=== PATIENT | male | born 1945 | race Caucasian/White ===

== ENCOUNTER 2020-03-21 11:40 | Emergency (ER) | payer MEDICARE, BC, SELFPAY ==
--- NOTE | ~2020-03-21 | XR_ITS ---
EXAMINATION:XR cervical spine 4-5V DATE: 03/21/2020 12:28 INDICATION: Neck pain TECHNIQUE: AP, lateral, lateral swimmers and odontoid views of the cervical spine are provided. COMPARISON: 10/14/2006 FINDINGS: Alignment is normal. The odontoid is intact. No fracture is identified. The vertebral body heights are normal. There are 2 mm of chronic anterolisthesis of C4 on C5. There is mild loss of inte rvertebral disc space height throughout the cervical spine. Moderate to severe multilevel facet and u ncovertebral joint osteoarthritis is noted. Prevertebral soft tissues are normal. IMPRESSION: 1. Moderate cervical spondylosis without acute findings or significant interval change. Reviewed, dictated and finalized at location A. OMS IMPORT SPECIALIST
[2020-03-21 11:45] VITALS: BP 166/84; PULSE 78; RESP 17; TEMP 36.6; O2SAT 99
[2020-03-21 12:53] VITALS: BP 152/98; PULSE 66; RESP 18; O2SAT 99
--- NOTE | 2020-03-21 13:15 | ED.GENADULT ---
HPI - General Adult General Chief complaint: Unspecified Stated complaint: neck pain Time Seen by Provider: 03/21/20 11:42 Source: patient Mode of arrival: ambulatory Limitations: no limitations History of Present Illness HPI narrative: 74-year-old with a history of hypertension, chronic migraines, DJD here with complaints of neck pain for past few days. Patient states that he takes Ultram for his chronic migraines given by Dr. 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 He denies any weakness in his upper extremities. He states that Ultram has not helping with the pain. Onset (ago): day(s) (3) Location: neck Radiation: neck Severity: moderate Severity scale (1-10): 7 Quality: aching Pain Consistency: constant Relieving factors: movement Exacerbating factors: none Associated symptoms: denies other symptoms Related Data Home Medications Medication Instructions Recorded Confirmed aspirin 81 mg tablet,delayed 81 mg PO DAILY 06/08/19 release atorvastatin 40 mg tablet 40 mg PO DAILY 06/08/19 carvedilol 6.25 mg tablet 6.25 mg PO Q12H 06/08/19 nitroglycerin 0.4 mg sublingual 0.4 mg SUBLINGUAL Q5M PRN 06/08/19 tablet tramadol 50 mg tablet 100 mg PO Q6H PRN tablet 06/08/19 vitamin B complex 1 tablet PO DAILY 09/12/19 Allergies Allergy/AdvReac Type Severity Reaction Status Date / Time No Known Allergies Allergy Verified 03/21/20 11:47 Review of Systems Review of Systems: All systems reviewed & are unremarkable except as noted in HPI and below Constitutional: Constitutional: Reports no additional constitutional complaints Eyes: Eyes: Reports no additional eye complaints ENT: Reports system reviewed and no additional complaints, except as documented Cardiovascular: Cardiovascular: Reports no additional cardiovascular complaints Respiratory: Respiratory: Reports no additional respiratory complaints Musculoskeletal: Musculoskeletal: Reports as per HPI [facility] Past Medical History Medical History Dyslipidemia Hyperparathyroidism Hypogonadism Left carpal tunnel syndrome Lumbar disc disease Migraine Normal colonoscopy RAQUEL (obstructive sleep apnea) Pre-diabetes Vitamin B12 deficiency Surgical History Surgical History History of coronary artery stent placement 2014 History of left inguinal hernia repair 2018 History of parathyroid surgery Family History Family History Other Diabetes mellitus Family history of cardiovascular disease Family history of lung cancer Hypertension Social History Social History Smoking status: Former smoker Smoking end date: 05/17/98 Alcohol intake: current Substance use: never Substance use type: does not use and marijuana Other substance usage details: occasionally Gender identity (if verbalized by the patient): Male Exam Narrative: Exam Narrative: GENERAL: Well-appearing, well-nourished, and in no acute distress. HEAD: Normocephalic, atraumatic. EYES: PERRLA and EOMI. ENT: Nares normal NECK: Supple.pain in the right side of the neck CHEST: Clear to auscultation. No respiratory distress. HEART: Regular rate and rhythm. No murmur heard. Normal peripheral pulses. EXTREMITIES: Normal range of motion. No edema. SKIN: Warm, dry, no rash. NEURO: No focal deficits. Alert and oriented x3. PSYCH: Normal mood and affect. Course Course Emergency Course: Inform patient about his x-ray findings. Advised him to take Ultram for pain as needed, will start him on steroids and and Flexeril for muscle relaxation. Vital Signs Vital signs: Vital Signs Temperature 36.6 C 03/21/20 11:45 Pulse Rate 78
[2020-03-21 13:40] VITALS: BP 158/62; PULSE 78; RESP 18; O2SAT 99
== END 2020-03-21 13:43 | disposition home or self-care (01) ==
PROVIDERS: Emergency Provider Family Medicine; PCP Family Medicine
DX: M47.812 Spondylosis without myelopathy or radiculopathy, cervical region (principal); Z79.82 Long term (current) use of aspirin; E78.5 Hyperlipidemia, unspecified; E21.3 Hyperparathyroidism, unspecified; G47.33 Obstructive sleep apnea (adult) (pediatric); R73.03 Prediabetes; E53.8 Deficiency of other specified B group vitamins; Z87.891 Personal history of nicotine dependence; Z95.5 Presence of coronary angioplasty implant and graft
CPT/HCPCS: 72050; 99283

== ENCOUNTER 2022-01-01 13:53 | Outpatient (RCR) | payer MEDICARE, BC, SELFPAY | END 2022-01-02 15:23 | disposition home or self-care (01) | LOC: ANHDMC 13:53 | PROVIDERS: PCP Family Medicine; Visit Provider Nurse Practitioner | DX: E11.65 Type 2 diabetes mellitus with hyperglycemia (principal); Z71.89 Other specified counseling | CPT/HCPCS: G0109 ==

== ENCOUNTER 2022-02-02 11:10 | Outpatient (CLI) | payer MEDICARE, BC, SELFPAY ==
[2022-02-02 20:58] LABS: Alanine Aminotransferase 17 U/L (6-50); Albumin Level 4.5 g/dL (3.5-5.1); Alkaline Phosphatase 61 U/L (38-126); Anion Gap 12 mmol/L (8-16); Aspartate Amino Transferase 56 U/L (17-59); Bilirubin,Total 0.5 mg/dL (0.2-1.3); Blood Urea Nitrogen 18 mg/dL (9-20); Carbon Dioxide 31 mmol/L (22-30); Chloride 95 mmol/L (98-107); Estimated Glomerular Filt Rate > 60; Glucose 152 mg/dL (65-110); Potassium 4.5 mmol/L (3.4-5.0); Sodium 138 mmol/L (137-145)
[2022-02-02 20:59] LABS: Hemoglobin A1C 7.8 % (<5.7)
== END 2022-02-02 11:11 | disposition home or self-care (01) ==
LOC: ANHGOSHLAB 11:14
PROVIDERS: PCP Family Medicine; Visit Provider Family Medicine
DX: E78.5 Hyperlipidemia, unspecified (principal); I10 Essential (primary) hypertension; E11.9 Type 2 diabetes mellitus without complications
CPT/HCPCS: 36415; 80053; 83036

== ENCOUNTER 2022-05-01 08:45 | Outpatient (RCR) | payer MEDICARE, BC, SELFPAY ==
--- NOTE | 2022-02-19 09:25 | PTOPEVAL1 ---
Assessment and note entered by Mickey Robbins, PT, DPT Evaluation Information Assessment Status Evaluation Diagnosis Leg pain Onset 2 months Subjective Information Pt states prior he was having a lot of leg pain. He states he has been walking a mile a day for the last 2 weeks or so. He states he has radiating pain into his left leg, this improves with prolonged walking. He reports he also has chronic migraine. He states his leg pain was a 8/10, and now it has decreased to an average 4/10. Reported Pain Level Pain Score 0: Self Report Assessment PT Clinical Summary James Alvarado presents to therapy today for his initial evaluation with a diagnosis thoracic, lumbar, and sacral disc disorder with radiculopathy. Today he demonstrates excellent strength and ROM of his LEs bilaterally. He has significant limitations in her cervical, thoracic, and lumbar mobility through active motion as well as with palpation. He has a flatted thoracic and lumbar spine with a forward head and rounded posture. Skilled physical therapy services are indicated to improve spinal mobility, to limit radiating symptoms, and to promote improved posture and body mechanics. Plan of Care Interventions Electrical Stimulation,Hot Pack/Cold Pack,Manual Therapy,Neuro Re-education,Patient/Caregiver Educati,Therapeutic Activities,Therapeutic Exercise PT Services Indicated Yes Treatment Frequency and 1x/wk for 6 wks Duration These treatments will address the objective and functional deficits as defined above. The patient will be advanced safely and appropriately in order for the patient to progress towards his/her prior level of function. Additional exercises will be introduced and as well as a comprehensive home exercise program upon discharge, if needed, ?to ensure carryover of functional gains achieved in the clinic. This treatment plan has been reviewed and agreement upon by the patient.
--- NOTE | 2022-03-17 11:15 | PCPTNOTE ---
Patient called to cancel day off appointment due to not being able to make it.
--- NOTE | 2022-04-06 15:07 | PCPTNOTE ---
Patient did not show up for scheduled appointment this date. Called patient and attempted to leave a voicemail but his mailbox was full. Will attempt at a later date.
--- NOTE | 2022-04-10 14:17 | PCPTNOTE ---
Called again to follow up with patient about cancelling his appointment earlier this week. Attempted to leave voicemail but the mailbox was full.
--- NOTE | 2022-04-16 16:42 | PTOPPROG ---
Assessment and note entered by Mickey Robbins, PT, DPT Evaluation Information Assessment Status Progress Diagnosis Leg and neck pain Onset chronic Subjective Information Pt states he has been doing okay, he has been focusing more on his neck exercises. He states his legs are feeling better and he has been able to increase his walking up to his usual 4 miles. He states he has been having leg and neck stiffness and it is still progressing. Assessment PT Clinical Summary presents to therapy today for his progress report following 5 visits of therapy to treat his leg and neck pain. His LE strength has improved and he does not report any functional limitations at this time. He continues to have decreased cervical active and passive ROM as well as continues to have a very forward head with rounded and stooped posture. Continuation of skilled physical therapy services are indicated to progress cervical ROM and intervertebral joint mobility, to manage neck pain and headaches, and to return to baseline function. Plan of Care Interventions Electrical Stimulation,Hot Pack/Cold Pack,Manual Therapy,Neuro Re-education,Patient/Caregiver Educati,Therapeutic Activities,Therapeutic Exercise PT Services Indicated Yes Treatment Frequency and 1x/wk for 6 wks Duration These treatments will address the objective and functional deficits as defined above. The patient will be advanced safely and appropriately in order for the patient to progress towards his/her prior level of function. Additional exercises will be introduced and as well as a comprehensive home exercise program upon discharge, if needed, ?to ensure carryover of functional gains achieved in the clinic. This treatment plan has been reviewed and agreement upon by the patient.
--- NOTE | 2022-04-22 10:50 | PCPTNOTE ---
Patient called & cancelled scheduled appointment this date due to being sick.
--- NOTE | 2022-05-05 07:59 | PCPTNOTE ---
Patient called & cancelled scheduled appointment this date due to having a procedure done.
--- NOTE | 2022-05-13 10:12 | PCPTNOTE ---
Patient no showed this appointment. When called he states he forgot.
--- NOTE | 2022-05-14 14:48 | PCPTNOTE ---
Addendum entered by Mickey Robbins, PT, DPT 05/14/22 14:49: This treatment is being continued on visit number [id number]. Original Note: This treatment is being continued on visit number [id number]. Please see documentation on both accounts to view progress. Completed interventions, outcomes, and problems have been marked as Inactive to facilitate the copying of the Care plan routine for recurring accounts.
== END 2022-05-14 14:32 | disposition home or self-care (01) ==
LOC: ANHGOSHPT 08:45
PROVIDERS: PCP Family Medicine; Visit Provider Family Medicine
DX: M51.9 Unspecified thoracic, thoracolumbar and lumbosacral intervertebral disc disorder (principal); M54.16 Radiculopathy, lumbar region
CPT/HCPCS: 97110; 97112; 97140; 97161; 97530; 99199

== ENCOUNTER 2022-05-06 01:12 | Day surgery (SDC) | payer MEDICARE, BC, SELFPAY ==
[2022-04-23 13:16] VITALS: BMI 31.2
--- NOTE | 2022-05-05 14:14 | PM.HPGS ---
History of Present Illness History of Present Illness Consent: Risks, benefits, and alternatives have been discussed and questions answered. Patient agrees to proceed with procedure. Chief complaint: neoplasm screening Narrative: James Galeas is a 77 year old male referred for colon cancer screening. Review of Systems Review of Systems: All systems reviewed & are unremarkable except as noted in HPI and below PMFSH Past Medical History Medical History Dyslipidemia Hyperparathyroidism Hypogonadism Left carpal tunnel syndrome Lumbar disc disease Migraine Normal colonoscopy RAQUEL (obstructive sleep apnea) Vitamin B12 deficiency Surgical History Surgical History History of coronary artery stent placement 2014 History of left inguinal hernia repair 2018 History of parathyroid surgery Family History Family History Other Diabetes mellitus Family history of cardiovascular disease Family history of lung cancer Hypertension Social History Social History Years smoked: 20 Smoking status: Former smoker Tobacco type: cigarettes Smoking end date: 05/17/98 Alcohol intake: former Substance use: current Substance use type: marijuana Other substance usage details: occasionally Last use: 2X monthly Living arrangements: alone Gender identity (if verbalized by the patient): Male Spiritual care concerns: No Meds Home Medications and Allergies Home Medications Medication Instructions Recorded Confirmed Type carvedilol 6.25 mg tablet 6.25 mg PO Q12H 06/08/19 05/06/22 History nitroglycerin 0.4 mg sublingual 0.4 mg sublingual Q5M PRN Chest 06/08/19 04/23/22 History tablet (Nitrostat) Pain atorvastatin 40 mg tablet 40 mg PO QHS 07/31/21 05/06/22 History blood sugar diagnostic (YoicsTouch #25 ea 08/06/21 02/02/22 Rx Ultra Test strips) blood-glucose meter (YoicsTouch #1 ea 08/06/21 02/02/22 Rx Ultra2 Meter kit) lisinopril 20 mg tablet 20 mg PO DAILY #90 tabs 09/08/21 05/06/22 Rx lancets (OneTouch UltraSoft #100 ea 11/05/21 02/02/22 Rx Lancets) blood sugar diagnostic (OneTouch #200 ea 01/05/22 02/02/22 Rx Verio test strips) metformin 500 mg tablet 1,000 mg PO BID #360 tabs 02/02/22 05/06/22 Rx glipizide 5 mg tablet, extended 5 mg PO DAILY #90 tabs 02/03/22 05/06/22 Rx release 24 hr aspirin 325 mg tablet 325 mg PO DAILY 04/23/22 05/06/22 History tramadol 50 mg tablet 50 mg PO Q8H PRN Headache 04/23/22 04/23/22 History sumatriptan succinate 50 mg tablet See Rx Instructions .Route 04/27/22 05/06/22 Rx .COMPLEX #30 tabs topiramate 25 mg tablet (Topamax) 25 mg PO BID #60 tabs 04/28/22 Rx Allergies Allergy/AdvReac Type Severity Reaction Status Date / Time No Known Allergies Allergy Verified 05/06/22 07:27 Exam Resp: Auscultation: clear to auscultation bilaterally Cardio: Rate: regular rate Rhythm: regular rhythm GI: GI Palp: Yes Soft to palpation and No Tenderness to palpation present (GI) Assessment and Plan Assessment and plan (1) Colon cancer screening: Code(s): Z12.11 - Encounter for screening for malignant neoplasm of colon Status: Acute Assessment and Plan: Colonoscopy with possible biopsy or polypectomy or cautery or injection of substances.
[2022-05-06 07:31] VITALS: BP 139/81; PULSE 66; RESP 18; TEMP 35.8; O2SAT 100; BMI 31.1
[2022-05-06] MEDS: LACTATED RINGERS 1,000 ML 150 ML IV CONT (07:34)
[2022-05-06 07:46] LABS: Glucose Point of Care 139 mg/dl (65-105)
--- NOTE | 2022-05-06 07:58 | WPDANESEPPF ---
Anes - Initial Pre Proc Eval Procedure: Operation Date: 05/06/22 08:30 Proposed Procedures p Screening Colonoscopy - Jimmy Stokes MD Date/Time: 05/06/22 07:58 Surgeon: Jimmy Stokes MD Pre Op Diagnosis: neoplasm screening Patient Data Age: 77 Gender: M Height: 1.83 m Weight: 104.4 kg Last Vital Signs Temp 35.8 C L 05/06/22 07:31 Pulse 66 05/06/22 07:31 Resp 18 05/06/22 07:31 BP 139/81 05/06/22 07:31 Pulse Ox 100 05/06/22 07:31 O2 Del Method Room Air 05/06/22 07:31 Allergies Allergy/AdvReac Type Severity Reaction Status Date / Time No Known Allergies Allergy Verified 05/06/22 07:27 Home Medications Medication Instructions Recorded Confirmed Type carvedilol 6.25 mg tablet 6.25 mg PO Q12H 06/08/19 05/06/22 History nitroglycerin 0.4 mg sublingual 0.4 mg sublingual Q5M PRN Chest 06/08/19 04/23/22 History tablet (Nitrostat) Pain atorvastatin 40 mg tablet 40 mg PO QHS 07/31/21 05/06/22 History blood sugar diagnostic (OneTouch #25 ea 08/06/21 02/02/22 Rx Ultra Test strips) blood-glucose meter (OneTouch #1 ea 08/06/21 02/02/22 Rx Ultra2 Meter kit) lisinopril 20 mg tablet 20 mg PO DAILY #90 tabs 09/08/21 05/06/22 Rx lancets (OneTouch UltraSoft #100 ea 11/05/21 02/02/22 Rx Lancets) blood sugar diagnostic (OneTouch #200 ea 01/05/22 02/02/22 Rx Verio test strips) metformin 500 mg tablet 1,000 mg PO BID #360 tabs 02/02/22 05/06/22 Rx glipizide 5 mg tablet, extended 5 mg PO DAILY #90 tabs 02/03/22 05/06/22 Rx release 24 hr aspirin 325 mg tablet 325 mg PO DAILY 04/23/22 05/06/22 History tramadol 50 mg tablet 50 mg PO Q8H PRN Headache 04/23/22 04/23/22 History sumatriptan succinate 50 mg tablet See Rx Instructions .Route 04/27/22 05/06/22 Rx .COMPLEX #30 tabs topiramate 25 mg tablet (Topamax) 25 mg PO BID #60 tabs 04/28/22 Rx Laboratory Tests 05/06/22 07:43 POC Capillary Glucose 139 mg/dl H mg/dl (65-105) Patient hx anesthesia problems: none Family hx anesthesia problems: none Results Review: All pre-operative results and documents have been reviewed as part of the pre-operative evaluation. [facility] Past Medical History Medical History Dyslipidemia Hyperparathyroidism Hypogonadism Left carpal tunnel syndrome Lumbar disc disease Migraine Normal colonoscopy RAQUEL (obstructive sleep apnea) Vitamin B12 deficiency Surgical History Surgical History History of coronary artery stent placement 2013 History of left inguinal hernia repair 2018 History of parathyroid surgery Family History Family History Other Diabetes mellitus Family history of cardiovascular disease Family history of lung cancer Hypertension Social History Social History Years smoked: 20 Smoking status: Former smoker Tobacco type: cigarettes Smoking end date: 05/17/98 Alcohol intake: former Substance use: current Substance use type: marijuana Other substance usage details: occasionally Last use: 2X monthly Living arrangements: alone Gender identity (if verbalized by the patient): Male Spiritual care concerns: No Anes - Eval Final PreProcedure Day of Procedure 05/06/22 07:58 Patient weight: obese Heart: regular rate and rhythm Lungs: clear to auscultation Airway: Mallampati scale class II Neurological: alert and oriented Last oral intake: >/= 8 hours ASA classification: III Emergent: no Anesthetic plan: proceed Anesthesia type and monitoring: general GIVS and standard monitoring Results Review: All pre-operative results and documents have been reviewed as part of the pre-operative evaluation. Informed Consent: The patient's anesthetic plan and its attendant risks and benefits were discussed w
[2022-05-06 08:43] VITALS: BP 131/68; BP 137/81; PULSE 69; PULSE 78; RESP 20; RESP 21; O2SAT 100
[2022-05-06 08:53] VITALS: BP 138/78; PULSE 69; RESP 20; O2SAT 100
--- NOTE | 2022-05-06 09:43 | SUR.PHASEII ---
Patient was awaiting ride home for 15-20 minutes
== END 2022-05-06 09:30 | disposition home or self-care (01) ==
PROVIDERS: PCP Family Medicine; Visit Provider Internal Medicine Gastroenterology
PROC: 0DJD8ZZ Inspection of Lower Intestinal Tract, Via Natural or Artificial Opening Endoscopic (ICD-10-PCS; CPT 45378; principal; 2022-05-06 08:30)
DX: Z12.11 Encounter for screening for malignant neoplasm of colon (principal); K57.30 Diverticulosis of large intestine without perforation or abscess without bleeding; D12.0 Benign neoplasm of cecum; E78.5 Hyperlipidemia, unspecified; G47.33 Obstructive sleep apnea (adult) (pediatric); Z95.5 Presence of coronary angioplasty implant and graft; Z87.891 Personal history of nicotine dependence; F12.90 Cannabis use, unspecified, uncomplicated; E66.9 Obesity, unspecified; Z68.31 Body mass index [BMI] 31.0-31.9, adult; Z79.84 Long term (current) use of oral hypoglycemic drugs; Z79.82 Long term (current) use of aspirin
CPT/HCPCS: 45385; 82948; 88305; J2704; J7120

== ENCOUNTER → 2022-06-16 14:26 | Outpatient (CLI) | payer MEDICARE, BC, SELFPAY ==
--- NOTE | ~2022-06-16 | XR_ITS ---
EXAMINATION: XR lumbar spine min 4V DATE: 06/16/2022 14:43 INDICATION: Left leg pain TECHNIQUE: Anteroposterior, lateral, and bilateral oblique views of the lumbar spine, and cone-down l ateral view of the lumbosacral junction were obtained. COMPARISON: 10/26/2008 FINDINGS: There are 5 mm of anterolisthesis of L3 on L4 and L4 on L5. The vertebral body heights are normal. There is moderate loss of intervertebral disc space height at L1-2 and L5-S1. There is no fra cture. There is severe facet joint osteoarthritis of the mid and lower lumbar spine. Small degenerati ve osteophytes project from the anterior endplates of multiple vertebral bodies. Calcified atheroscle rosis is noted. IMPRESSION: 1. Mild to moderate lumbar spondylosis without acute findings or significant interval change. Reviewed, dictated and finalized at location B. DESIGN ENGINEER IMPRESSION: 1. Mild to moderate lumbar spondylosis without acute findings or significant in terval change.
== END ==
PROVIDERS: PCP Family Medicine; Visit Provider Nurse Practitioner
DX: M79.605 Pain in left leg (principal); M43.06 Spondylolysis, lumbar region
CPT/HCPCS: 72110

== ENCOUNTER 2022-06-22 11:00 | Outpatient (RCR) | payer MEDICARE, BC, SELFPAY ==
--- NOTE | 2022-05-14 14:48 | PCPTNOTE ---
The treatment documented on this account is a continuation of the treatment documented on visit number [id number]. Please see documentation on both accounts to view progress. The Plan of Care has been transitioned and updated within the new V#. I have addressed and agree with the discipline specific Problems, Interventions, and Goals for the current certification period. Completed interventions, outcomes, and problems have been marked as Inactive to facilitate the copying of the Care plan routine for recurring accounts.
--- NOTE | 2022-05-19 08:05 | PCPTNOTE ---
Patient canceled appointment this date due to conflicting dentist appointment.
--- NOTE | 2022-05-27 13:49 | OTOPEVAL1 ---
Assessment and note entered by Mira Archibald OTR/Demarco Evaluation Information Assessment Status Evaluation Diagnosis R UE elbow pain Subjective Information Patient presents to outpatient OT with complaint of R UE elbow pain for ~1 month. Patient reports injury was caused from picking up a 50lbs block of loyda at his [employer] and felt a pop at the antecubital aspect of elbow and now has palpable tenderness and pain with lifting heavier objects with R UE. Reported Pain Level Pain Score 2: Self Report Assessment OT Clinical Summary James Alvarado is a 77 year old male who presents to outpatient OT for pain in R elbow which began ~1 month prior. Patient reports pain over the distal end of biceps tendon with attempting to perform elbow flexion with any type of weight, carrying objects, and some gripping tasks. Patient demonstrated increased pain resistive elbow flexion and forearm supination. 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 Patient would benefit from skilled OT for HEP instruction, modalities, manual theraputty to optimize healing and functional use of R UE for daily tasks and activities. Plan of Care Interventions Therapeutic Exercise,Manual Therapy,Therapeutic Activities,Hot Pack/Cold Pack,Ultrasound,Paraffin OT Services Indicated Yes Treatment Frequency and 1x/week, 4 weeks Duration These treatments will address the objective and functional deficits as defined above. The patient will be advanced safely and appropriately in order for the patient to progress towards his/her prior level of function. Additional exercises will be introduced and as well as a comprehensive home exercise program upon discharge, if needed, ?to ensure carryover of functional gains achieved in the clinic. This treatment plan has been reviewed and agreement upon by the patient.
--- NOTE | 2022-05-28 12:01 | PTOPDC ---
Assessment and note entered by Mickey Robbins, PT, DPT Evaluation Information Assessment Status Discharge Diagnosis decreased spinal mobility Subjective Information Pt states overall he is doing good. He states his L leg is not bothering him as much. He states the exercises make him feel good, and he plans to prioritize these even more. He states he is progressing well he just needs more time to keep progressing. He states he can feel the difference when he does his exercises compared to when he does not. Pt reports 10% improvement in his overall symptoms, he states this would be more if he completed his exercises more. Pt reports no pain at rest and a decreased from 8/10 to 5/10 for his worst pain rating. Reported Pain Level Pain Score 0: Self Report Assessment PT Clinical Summary presents to therapy today for his progress report following 7 visits of skilled therapy standing since his evaluation on 02/19/22. Today he demonstrates minimal functional improvements since his evaluation. He continues to demonstrates decreased cervical ROM in all directions. He continue to report radicular symptoms down his leg as well as almost daily migraine. He will be discharged from skilled therapy services at this d /t poor therapy progress and poor compliance. If he needs additional therapy at a later date he will need a new order. Plan of Care PT Services Indicated No Treatment Frequency and to be discharged Duration
--- NOTE | 2022-06-22 11:38 | OTOPDC ---
Assessment and note entered by MIKAEL Orellana/Demarco Evaluation Information Assessment Status Discharge Diagnosis R UE elbow pain Subjective Information Patient presents to outpatient OT with complaint of R UE elbow pain for ~1 month and has attended outpatient OT for 4 weeks. Patient reports since beginning therapy has noticed progress with decreased pain in R UE elbow with lifting heavier items. Patient reports has completed HEP x1 a day and has been cautious when lifting and attempting to use better body mechanics to not aggravate elbow symptoms. Patient reports is very pleased with the progress of elbow. Reported Pain Level Pain Score 0: Self Report Assessment OT Clinical Summary James Alvarado is a 77 year old male who presents to outpatient OT for pain in R elbow which began ~1 month prior. Patient reports is now able to carry objects with decreased pain in R elbow, no pain with carrying objects with forearm in supinated position and slight discomfort with elbow in neutral position. Patient demonstrated no pain with resistive elbow flexion and forearm supination. Patient demonstrates improved set and exhibit designer strength and forearm supination. Patient is pleased with progress. Patient is to be discharged from skilled OT with independence with HEP materials. Plan of Care OT Services Indicated No
== END 2022-07-15 14:31 | disposition home or self-care (01) ==
LOC: ANHGOSHOT 11:00
PROVIDERS: PCP Family Medicine; Visit Provider Family Medicine
DX: M51.9 Unspecified thoracic, thoracolumbar and lumbosacral intervertebral disc disorder (principal); M54.16 Radiculopathy, lumbar region; M67.823 Other specified disorders of tendon, right elbow; M25.521 Pain in right elbow
CPT/HCPCS: 97018; 97110; 97140; 97165

== ENCOUNTER 2022-10-15 11:25 | Outpatient (CLI) | payer MEDICARE, BC, SELFPAY ==
[2022-10-15 18:43] LABS: Alanine Aminotransferase 23 U/L (6-50); Albumin Level 4.4 g/dL (3.5-5.1); Alkaline Phosphatase 63 U/L (38-126); Anion Gap 3 mmol/L (8-16); Aspartate Amino Transferase 32 U/L (17-59); Bilirubin,Total 0.5 mg/dL (0.2-1.3); Blood Urea Nitrogen 18 mg/dL (9-20); Carbon Dioxide 36 mmol/L (22-30); Chloride 99 mmol/L (98-107); Cholesterol 166 mg/dL (0-200); Estimated Glomerular Filt Rate > 60; Glucose 214 mg/dL (65-110); HDL Direct 57 mg/dL; Potassium 4.9 mmol/L (3.4-5.0); Sodium 138 mmol/L (137-145); Triglycerides 137 mg/dL (<150)
[2022-10-15 18:55] LABS: LDL Cholesterol Direct 79 mg/dL
[2022-10-15 19:16] LABS: Prostate Specific Antigen 2.5 ng/mL (< OR = 4.0)
[2022-10-15 19:23] LABS: MALB Creatinine Ratio 15.2 mg/g (0-30); Microalbumin Urine Random 6.4 mg/L (0-16.7)
[2022-10-15 19:23] LABS: Basophils Absolute Auto 0.1 K/mm3 (0.0-0.1); Eosinophils Absolute Auto 0.2 K/mm3 (0-0.3); Hematocrit 40.9 % (42.0-52.0); Hemoglobin 13.7 g/dL (14.0-18.0); Immature Granulocyte Absolute 0.02 K/mm3 (0.00-0.031); Immature Granulocyte Percent A 0.3 % (0-0.5); Lymphocytes Absolute Auto 1.33 K/mm3 (0.9-3.2); Lymphocytes Percent Auto 22.1 % (18.3-44.2); Mean Corpuscular HGB Conc 33.5 g/dl (32-36); Mean Corpuscular Hemoglobin 29.7 pg (26-34); Mean Corpuscular Volume 88.7 fl (80-100); Mean Platelet Volume 9.6 fl (7.4-10.4); Monocytes Absolute Auto 0.7 K/mm3 (0.1-0.6); Monocytes Percent Auto 10.9 % (2.6-8.5); Neutrophils Absolute Auto 3.8 K/mm3 (1.3-6.7); Neutrophils Percent Auto 62.7 % (45.5-73.1); Platelet Count Result 300 k/mm3 (150-375); Red Blood Count 4.61 M/mm3 (4.6-6.20); Red Cell Distribution Width 12.5 % (11.5-14.5)
[2022-10-15 19:30] LABS: Hemoglobin A1C 7.5 % (<5.7)
[2022-10-15 19:58] LABS: Vitamin D 25 Hydroxy 24.4 ng/mL
== END 2022-10-15 11:26 | disposition home or self-care (01) ==
LOC: ANHGOSHLAB 11:26
PROVIDERS: PCP Family Medicine; Visit Provider Family Medicine
DX: E55.9 Vitamin D deficiency, unspecified (principal); E78.5 Hyperlipidemia, unspecified; I25.10 Atherosclerotic heart disease of native coronary artery without angina pectoris; I10 Essential (primary) hypertension; E11.9 Type 2 diabetes mellitus without complications; G43.019 Migraine without aura, intractable, without status migrainosus; Z13.29 Encounter for screening for other suspected endocrine disorder; E53.8 Deficiency of other specified B group vitamins; Z12.5 Encounter for screening for malignant neoplasm of prostate
CPT/HCPCS: 36415; 80053; 80061; 82043; 82306; 82607; 83036; 84153; 84443; 85025; G0103

== ENCOUNTER 2023-02-18 10:16 | Outpatient (CLI) | payer MEDICARE, BC, SELFPAY ==
[2023-02-18 18:34] LABS: Basophils Absolute Auto 0.1 K/mm3 (0.0-0.1); Basophils Percent Auto 0.9 % (0.2-1.2); Eosinophils Absolute Auto 0.2 K/mm3 (0-0.3); Eosinophils Percent Auto 3.2 % (0-4.4); Hematocrit 40.8 % (42.0-52.0); Hemoglobin 13.5 g/dL (14.0-18.0); Immature Granulocyte Absolute 0.02 K/mm3 (0.00-0.031); Immature Granulocyte Percent A 0.3 % (0-0.5); Lymphocytes Absolute Auto 1.42 K/mm3 (0.9-3.2); Lymphocytes Percent Auto 21.9 % (18.3-44.2); Mean Corpuscular HGB Conc 33.1 g/dl (32-36); Mean Corpuscular Hemoglobin 29.7 pg (26-34); Mean Corpuscular Volume 89.9 fl (80-100); Mean Platelet Volume 9.9 fl (7.4-10.4); Monocytes Absolute Auto 0.7 K/mm3 (0.1-0.6); Monocytes Percent Auto 10.3 % (2.6-8.5); Neutrophils Absolute Auto 4.1 K/mm3 (1.3-6.7); Neutrophils Percent Auto 63.4 % (45.5-73.1); Platelet Count Result 289 k/mm3 (150-375); Red Blood Count 4.54 M/mm3 (4.6-6.20); Red Cell Distribution Width 12.4 % (11.5-14.5); White Blood Count 6.5 K/mm3 (4.5-10.0)
[2023-02-18 18:43] LABS: Alanine Aminotransferase 24 U/L (6-50); Albumin Level 4.3 g/dL (3.5-5.1); Alkaline Phosphatase 61 U/L (38-126); Anion Gap 7 mmol/L (8-16); Aspartate Amino Transferase 34 U/L (17-59); Bilirubin,Total 0.7 mg/dL (0.2-1.3); Blood Urea Nitrogen 16 mg/dL (9-20); Calcium 9.1 mg/dL (8.4-10.2); Carbon Dioxide 32 mmol/L (22-30); Chloride 99 mmol/L (98-107); Estimated Glomerular Filt Rate > 60; Glucose 183 mg/dL (65-110); Potassium 4.4 mmol/L (3.4-5.0); Sodium 138 mmol/L (137-145)
[2023-02-18 20:43] LABS: Hemoglobin A1C 8.1 % (<5.7)
== END 2023-02-18 10:17 | disposition home or self-care (01) ==
PROVIDERS: PCP Family Medicine; Visit Provider Family Medicine
DX: E11.9 Type 2 diabetes mellitus without complications (principal); I10 Essential (primary) hypertension; I25.10 Atherosclerotic heart disease of native coronary artery without angina pectoris; R68.89 Other general symptoms and signs
CPT/HCPCS: 36415; 80053; 83036; 85025

== ENCOUNTER 2023-03-30 08:13 | Outpatient (CLI) | payer MEDICARE, BC, SELFPAY ==
--- NOTE | 2023-03-30 | EST_ITS ---
Patient Info Name: James Galeas Age: 77 years : 1945 Gender: Male Ht: 72 in Wt: 250 lbs BSA: 2.44 m2 HR: 60 bpm BP: 157 / 81 mmHg Heart Rhythm: Sinus Rhythm Technical Quality: Fair Exam Date: 03/30/2023 9:15 AM Exam Location: Echo Lab Patient Status: Outpatient Admit Date: 03/30/2023 Staff Ordering Physician: Malcolm Morgan MD Commissioning Manager: Magali Barreto RDCS Attending Provider: KELVIN BAILEY NP Referring Physician: Cathy ALEXANDRE; Exercise Technologist: Magali Barreto RDCS Nurse: Kelvin Bailey APN Exam Type: CA stress echo Study Info Indications R07.9 - Chest pain, unspecified R06.09 - Other forms of dyspnea Treadmill exercise stress echocardiogram is performed. Summary 1. Decreased exercise tolerance. Total exercise time was 4:08 minutes, and patient barely reached 84% of predicted maximal heart rate. 2. No exercise-induced chest pain. Exercise limited by dyspnea. 3. Resting inferolateral hypokinesis. 4. Hypertensive blood pressure response. 5. Exercise-induced ST depression inferolaterally as above. 6. Exercise-induced wall motion abnormalities with mid and distal lateral hypokinesis, and inferior wall hypokinesis superimposed on the previously noted inferolateral hypokinesis. Mild left ventricular dilatation with exercise. 7. Somewhat technically difficult study, not all segments of the left ventricular endocardium was clearly identified in all views. Stress Echo Findings Left Ventricle Exercise-induced hypokinesis of the mid and distal lateral wall, the inferior wall, superimposed on the previously noted inferolateral hypokinesis. Mild LV dilatation with exercise. Left Ventricle Normal left ventricular size with mild LVH and sigmoid hypertrophy of the septum. Resting hypokinesis of the inferolateral wall. EF 60-65%. Protocol: Shar Stress ECG Details Stage: REST Duration (min): 1 min : 52 sec Speed (mph): 0.0 Grade (%): 0 HR (bpm): 63 SBP (mmHg): --- DBP (mmHg): --- METS: --- Stage: REST Duration (min): 2 min : 46 sec Speed (mph): 0.0 Grade (%): 0 HR (bpm): 63 SBP (mmHg): --- DBP (mmHg): --- METS: --- Stage: REST Duration (min): 10 min : 37 sec Speed (mph): 0.0 Grade (%): 0 HR (bpm): 64 SBP (mmHg): --- DBP (mmHg): --- METS: --- Stage: STAGE 1 Duration (min): 1 min : 0 sec Speed (mph): 1.7 Grade (%): 10 HR (bpm): 92 SBP (mmHg): --- DBP (mmHg): --- METS: --- Stage: STAGE 1 Duration (min): 2 min : 0 sec Speed (mph): 1.7 Grade (%): 10 HR (bpm): 97 SBP (mmHg): --- DBP (mmHg): --- METS: --- Stage: STAGE 1 Duration (min): 3 min : 0 sec Speed (mph): 1.7 Grade (%): 10 HR (bpm): 105 SBP (mmHg): 193 DBP (mmHg): 47 METS: --- Stage: STAGE 2 Duration (min): 1 min : 0 sec Speed (mph): 0.0 Grade (%): 0 HR (bpm): 112 SBP (mmHg): 193 DBP (mmHg): 47 METS: --- Stage: STAGE 2 Duration (min): 1 min : 8 sec Speed (mph): 0.0 Grade (%): 0 HR (bpm): 114 SBP (mmHg): 193 DBP (mmHg): 47 METS: --- Stage: RECOVERY Duration (min): 0 min : 51 sec Speed (mph):
== END 2023-03-30 08:14 | disposition home or self-care (01) ==
PROVIDERS: PCP Family Medicine; Visit Provider Specialist
DX: I25.10 Atherosclerotic heart disease of native coronary artery without angina pectoris (principal); R06.09 Other forms of dyspnea; R93.1 Abnormal findings on diagnostic imaging of heart and coronary circulation
CPT/HCPCS: 93351

== ENCOUNTER 2023-04-16 01:54 | Day surgery (SDC) | payer MEDICARE, BC, SELFPAY ==
[2023-04-16] VITALS (28 sets, daily range): BP systolic 101–144; BP diastolic 51–74; PULSE 53–70; RESP 10–20; TEMP 36.5; O2SAT 92–100; BMI 32.0
[2023-04-16 10:01] LABS: Basophils Absolute Auto 0.1 K/mm3 (0.0-0.1); Basophils Percent Auto 0.9 % (0.2-1.2); Eosinophils Absolute Auto 0.2 K/mm3 (0-0.3); Eosinophils Percent Auto 2.8 % (0-4.4); Hematocrit 38.7 % (42.0-52.0); Hemoglobin 13.1 g/dL (14.0-18.0); Immature Granulocyte Absolute 0.03 K/mm3 (0.00-0.031); Immature Granulocyte Percent A 0.4 % (0-0.5); Lymphocytes Absolute Auto 1.45 K/mm3 (0.9-3.2); Lymphocytes Percent Auto 21.3 % (18.3-44.2); Mean Corpuscular HGB Conc 33.9 g/dl (32-36); Mean Corpuscular Hemoglobin 29.8 pg (26-34); Mean Platelet Volume 9.1 fl (7.4-10.4); Monocytes Absolute Auto 0.7 K/mm3 (0.1-0.6); Monocytes Percent Auto 10.6 % (2.6-8.5); Neutrophils Absolute Auto 4.4 K/mm3 (1.3-6.7); Platelet Count Result 233 k/mm3 (150-375); Red Cell Distribution Width 12.3 % (11.5-14.5); White Blood Count 6.8 K/mm3 (4.5-10.0)
[2023-04-16 10:20] LABS: Anion Gap 10 mmol/L (8-16); Blood Urea Nitrogen 22 mg/dL (9-20); Calcium 9.3 mg/dL (8.4-10.2); Carbon Dioxide 29 mmol/L (22-30); Chloride 97 mmol/L (98-107); Estimated CRCL calculation 84 ml/min; Estimated Glomerular Filt Rate > 60; Glucose 209 mg/dL (65-110); Potassium 4.3 mmol/L (3.4-5.0); Sodium 136 mmol/L (137-145)
[2023-04-16 10:35] LABS: INR 0.9; Prothrombin Time 12.7 Seconds (11.1-14.7)
--- NOTE | 2023-04-16 10:44 | WPDMODSED ---
Moderate Sedation Note-Pt Data Patient Data Diagnosis: coronary artery disease with previous PCI exertional chest discomfort of recent onset abnormal stress test Present Complaint: this is a 77-year-old man known to have coronary disease. Eleven years ago he underwent stenting of his LAD. He is now reporting exertional chest discomfort typical of angina for the last 2 months and elect exercise electrocardiogram was abnormal as an outpatient Procedure to be performed/Plan: left heart catheterization Allergies Allergy/AdvReac Type Severity Reaction Status Date / Time No Known Allergies Allergy Verified 04/16/23 09:23 Home Medications Medication Instructions Recorded Confirmed Type nitroglycerin 0.4 mg sublingual 0.4 mg sublingual Q5M PRN Chest 06/08/19 04/15/23 History tablet (Nitrostat) Pain atorvastatin 40 mg tablet 40 mg PO QHS 07/31/21 04/15/23 History blood sugar diagnostic (TechFaithTouch #25 ea 08/06/21 02/18/23 Rx Ultra Test strips) blood-glucose meter (TechFaithTouch #1 ea 08/06/21 02/18/23 Rx Ultra2 Meter kit) lancets (TechFaithTouch UltraSoft #100 ea 11/05/21 02/18/23 Rx Lancets) aspirin 325 mg tablet 325 mg PO HS 04/23/22 04/15/23 History blood sugar diagnostic (OneTouch #200 ea 06/25/22 02/18/23 Rx Verio test strips) glipizide 5 mg tablet, extended 5 mg PO DAILY #90 tabs 11/03/22 04/15/23 Rx release 24 hr lisinopril 20 mg tablet 20 mg PO DAILY #90 tabs 11/03/22 04/15/23 Rx metformin 500 mg tablet 1,000 mg PO BID #360 tabs 11/03/22 04/15/23 Rx atogepant 60 mg tablet (Qulipta) 60 mg PO DAILY 01/21/23 04/15/23 History cholecalciferol (vitamin D3) 1,250 1,250 mcg PO WEEKLY #12 tabs 02/01/23 04/15/23 Rx mcg (50,000 unit) tablet propranolol 160 mg capsule,24 160 mg PO DAILY #90 caps 02/18/23 04/15/23 Rx hr,extended release hydrocodone 7.5 mg-acetaminophen 1 tablet PO PRN PRN Pain (Scale 04/15/23 04/15/23 History 300 mg tablet Score 7-10) rimegepant 75 mg disintegrating 75 mg PO ONCE PRN migraine 04/15/23 04/15/23 Rx tablet (Nurtec ODT) headache #10 tabs vitamin B complex (B 1 tablet PO DAILY 04/15/23 04/15/23 History Complex-Vitamin B12 tablet) Current Medications: Active Medications Sodium Chloride (Normal Saline Iv) 500 mls @ 100 mls/hr IV CONT .Q5H GOLDEN Sedation/Anesthesia: No previous sedation/anesthesia problems (including family history). [facility] Past Medical History Medical History (Updated 02/18/23 @ 11:08 by Rory Elliott MD) Anxiety Chronic migraine without aura Diabetes Dyslipidemia Hyperparathyroidism Hypogonadism Lumbar disc disease Migraine Normal colonoscopy RAQUEL (obstructive sleep apnea) Vitamin B12 deficiency Surgical History Surgical History History of coronary artery stent placement 2013 History of left inguinal hernia repair 2018 History of parathyroid surgery Left carpal tunnel syndrome left carpal tunnel release 2019 Family History Family History Other Diabetes mellitus Family history of cardiovascular disease Family history of lung cancer Hypertension Social History Social History Years smoked: 20 Smoking status: Former smoker Tobacco type: cigarettes Smoking end date: 05/01/79 Alcohol intake: former Substance use: current Substance use type: marijuana Other substance usage details: occasionally Last use: 2X monthly Lack of Transportation: No Lack of Food: Never True Current Housing: I Have Housing Concerned About Future Housing: No Difficulty Paying Gas/Electric Bills: No Difficulty Paying for Meds: No Currently Unemployed: No Education: Bachelor's Degree Difficulty w/ Childcare or Family Care: No Living arrangements: alone Occupation/Education: occupation Additional occupation/education comments: [employer]
--- NOTE | 2023-04-16 11:13 | WPDCARDPROC ---
Cardiac Cath Procedure Note Date of procedure:: 04/16/23 Performing physician:: Malcolm Morgan MD Indication:: exertional angina previous PCI Brief clinical history:: this is a 77-year-old man who underwent PTCA and stenting of the proximal LAD 11 years ago. He has been asymptomatic until recently where exertional angina has recurred. Because of an abnormal stress electrocardiogram as well follow-up angiography has been recommended for today Procedure Procedure performed:: left ventriculogram coronary angiography Sedation/Medication given:: fentanyl 50 mg Versed 2 case start time 10:51 a.m. case end time 11:08 a.m. sedation provided by Theresa Palma RN, trained observer Access site:: right femoral artery Estimated blood loss:: 20 cc Procedure note:: patient was brought to the cardiac catheterization lab in the postabsorptive state where the right femoral triangle was prepared and draped in the usual fashion. Anesthesia was provided 1% lidocaine infiltrated locally. Using the modified Seldinger technique the femoral artery was punctured a 5 and sheath was placed. After this I used a 5 catheter to measure left-sided hemodynamics injected left ventriculogram in the 30 degree SANDHU projection. Following this standard JR4 catheter was used to engage and inject the right coronary artery. Following this a 5 Danish FL4 catheter was used to engage and inject the left coronary artery in multiple projections. The cineangiograms were reviewed and the case was terminated. The patient was taken to the holding area for manual sheath removal. Procedure was well tolerated and uncomplicated. There was no evidence of groin hematoma upon leaving the cardiac catheterization lab in Findings:: hemodynamics: Central aortic pressure is 118 over 52 left ventricle 118/0 end-diastolic 16 there is no gradient across the aortic valve upon pullback. Left ventricle: The LV is normal in size all segments contract appropriately the global ejection fraction visually estimated to be about 60-65%. The left main coronary artery is short and patent the left anterior descending is a moderately calcified vessel. There is high-grade stenosis of 90% just after the ostium and another another 85-90% stenosis about 15 mm distal to that. This area of high-grade stenosis is proximal to the previously deployed stent. That segment appears to be patent with no significant loss of. There are mild luminal irregularities in the LAD distal to this but no flow-limiting disease. The circumflex is a medium caliber vessel giving rise to only 1 marginal branch. The circumflex is free of significant lesions. The right coronary artery is small in caliber but dominant to the posterior circulation the right coronary artery is free of significant disease despite being small in caliber Conclusion:: 1. right coronary dominant circulation with single-vessel disease involving high-grade 90% lesions in the LAD just after the ostium and prior to previously deployed stent in the vessel. The stented segment remains nicely patent 2. moderate calcification of the disease segment of the proximal LAD 3. preserved left ventricular systolic function Malcolm Morgan MD [facility]
[2023-04-16] MEDS: ACETAMINOPHEN 325 MG TABLET 650 MG PO (15:45)
== END 2023-04-16 17:05 | disposition home or self-care (01) ==
PROVIDERS: PCP Family Medicine; Visit Provider Specialist
PROC: 4A023N7 Measurement of Cardiac Sampling and Pressure, Left Heart, Percutaneous Approach (ICD-10-PCS; CPT 93452; principal; 2023-04-16 10:30)
DX: I25.119 Atherosclerotic heart disease of native coronary artery with unspecified angina pectoris (principal); R93.1 Abnormal findings on diagnostic imaging of heart and coronary circulation; Z95.5 Presence of coronary angioplasty implant and graft
CPT/HCPCS: 36415; 80048; 85025; 85610; 93458; A9270; C1887; C1894; J1644; J2250; J3010; J7040

== ENCOUNTER 2023-04-26 13:49 | Outpatient (CLI) | payer MEDICARE, BC, SELFPAY ==
[2023-04-26 14:55] LABS: Basophils Absolute Auto 0.1 K/mm3 (0.0-0.1); Basophils Percent Auto 0.9 % (0.2-1.2); Eosinophils Absolute Auto 0.2 K/mm3 (0-0.3); Eosinophils Percent Auto 2.5 % (0-4.4); Hematocrit 44.5 % (42.0-52.0); Hemoglobin 14.7 g/dL (14.0-18.0); Immature Granulocyte Absolute 0.04 K/mm3 (0.00-0.031); Immature Granulocyte Percent A 0.5 % (0-0.5); Lymphocytes Absolute Auto 1.59 K/mm3 (0.9-3.2); Lymphocytes Percent Auto 21.3 % (18.3-44.2); Mean Corpuscular Hemoglobin 29.1 pg (26-34); Mean Corpuscular Volume 87.9 fl (80-100); Mean Platelet Volume 9.5 fl (7.4-10.4); Monocytes Absolute Auto 0.7 K/mm3 (0.1-0.6); Monocytes Percent Auto 8.8 % (2.6-8.5); Neutrophils Absolute Auto 4.9 K/mm3 (1.3-6.7); Platelet Count Result 328 k/mm3 (150-375); Red Blood Count 5.06 M/mm3 (4.6-6.20); Red Cell Distribution Width 12.3 % (11.5-14.5); White Blood Count 7.5 K/mm3 (4.5-10.0)
[2023-04-26 15:05] LABS: Anion Gap 10 mmol/L (8-16); Blood Urea Nitrogen 19 mg/dL (9-20); Calcium 9.6 mg/dL (8.4-10.2); Carbon Dioxide 27 mmol/L (22-30); Chloride 100 mmol/L (98-107); Estimated Glomerular Filt Rate > 60; Glucose 131 mg/dL (65-110); Potassium 4.1 mmol/L (3.4-5.0); Sodium 137 mmol/L (137-145)
== END 2023-04-26 13:50 | disposition home or self-care (01) ==
PROVIDERS: PCP Family Medicine
DX: I25.10 Atherosclerotic heart disease of native coronary artery without angina pectoris (principal)
CPT/HCPCS: 36415; 80048; 85025

== ENCOUNTER 2023-10-27 09:29 | Outpatient (CLI) | payer MEDICARE, BC, SELFPAY ==
[2023-10-27 19:12] LABS: Basophils Absolute Auto 0.1 K/mm3 (0.0-0.1); Basophils Percent Auto 0.7 % (0.2-1.2); Eosinophils Absolute Auto 0.2 K/mm3 (0-0.3); Eosinophils Percent Auto 2.8 % (0-4.4); Hematocrit 41.7 % (42.0-52.0); Hemoglobin 13.5 g/dL (14.0-18.0); Immature Granulocyte Absolute 0.03 K/mm3 (0.00-0.031); Immature Granulocyte Percent A 0.4 % (0-0.5); Lymphocytes Percent Auto 20.4 % (18.3-44.2); Mean Corpuscular HGB Conc 32.4 g/dl (32-36); Mean Corpuscular Hemoglobin 28.9 pg (26-34); Mean Corpuscular Volume 89.3 fl (80-100); Mean Platelet Volume 10.1 fl (7.4-10.4); Monocytes Absolute Auto 0.7 K/mm3 (0.1-0.6); Monocytes Percent Auto 10.5 % (2.6-8.5); Neutrophils Absolute Auto 4.5 K/mm3 (1.3-6.7); Neutrophils Percent Auto 65.2 % (45.5-73.1); Platelet Count Result 273 k/mm3 (150-375); Red Blood Count 4.67 M/mm3 (4.6-6.20); Red Cell Distribution Width 12.9 % (11.5-14.5); White Blood Count 6.9 K/mm3 (4.5-10.0)
[2023-10-27 19:44] LABS: Creatinine Urine 81.4 mg/dL
[2023-10-27 19:45] LABS: Alanine Aminotransferase 14 U/L (6-50); Albumin Level 4.3 g/dL (3.5-5.1); Alkaline Phosphatase 57 U/L (38-126); Anion Gap 4 mmol/L (4-12); Aspartate Amino Transferase 70 U/L (17-59); Bilirubin,Total 0.7 mg/dL (0.2-1.3); Blood Urea Nitrogen 20 mg/dL (9-20); Calcium 9.3 mg/dL (8.4-10.2); Carbon Dioxide 31 mmol/L (22-30); Chloride 103 mmol/L (98-107); Cholesterol 138 mg/dL (0-200); Estimated Glomerular Filt Rate > 60; Glucose 129 mg/dL (65-110); HDL Direct 41 mg/dL; Potassium 4.2 mmol/L (3.4-5.0); Sodium 138 mmol/L (137-145); Triglycerides 112 mg/dL (<150)
[2023-10-27 19:48] LABS: Vitamin D 25 Hydroxy 26.6 ng/mL
[2023-10-27 19:48] LABS: Parathyroid Intact 22.4 pg/mL (7.5-53.5)
[2023-10-27 19:51] LABS: MALB Creatinine Ratio 24.8 mg/g (0-30); Microalbumin Urine Random 20.2 mg/L (0-16.7)
[2023-10-27 19:52] LABS: LDL Cholesterol Direct 69 mg/dL
[2023-10-27 20:20] LABS: Prostate Specific Antigen 2.8 ng/mL (< OR = 4.0)
== END 2023-10-27 09:30 | disposition home or self-care (01) ==
PROVIDERS: PCP Family Medicine; Visit Provider Family Medicine
DX: E21.3 Hyperparathyroidism, unspecified (principal); E78.5 Hyperlipidemia, unspecified; I10 Essential (primary) hypertension; E11.9 Type 2 diabetes mellitus without complications; Z00.00 Encounter for general adult medical examination without abnormal findings; E53.8 Deficiency of other specified B group vitamins; Z12.5 Encounter for screening for malignant neoplasm of prostate
CPT/HCPCS: 36415; 80053; 80061; 82043; 82306; 82330; 82607; 83970; 84153; 84443; 85025; G0103

== ENCOUNTER 2023-11-17 12:28 | Outpatient (CLI) | payer MEDICARE, BC, SELFPAY ==
[2023-11-17 20:44] LABS: Hemoglobin A1C 7.9 % (<5.7)
== END 2023-11-17 12:29 | disposition home or self-care (01) ==
PROVIDERS: PCP Family Medicine; Visit Provider Nurse Practitioner
DX: R73.01 Impaired fasting glucose (principal)
CPT/HCPCS: 36415; 83036

== ENCOUNTER 2024-01-31 14:24 | Outpatient (CLI) | payer MEDICARE, BC, SELFPAY ==
[2024-01-31 18:45] LABS: Alanine Aminotransferase 19 U/L (6-50); Albumin Level 4.2 g/dL (3.5-5.1); Alkaline Phosphatase 76 U/L (38-126); Anion Gap 9 mmol/L (4-12); Aspartate Amino Transferase 54 U/L (17-59); Bilirubin,Total 0.6 mg/dL (0.2-1.3); Blood Urea Nitrogen 21 mg/dL (9-20); Calcium 9.3 mg/dL (8.4-10.2); Carbon Dioxide 27 mmol/L (22-30); Chloride 100 mmol/L (98-107); Estimated Glomerular Filt Rate > 60; Glucose 181 mg/dL (65-110); Potassium 4.2 mmol/L (3.4-5.0); Sodium 136 mmol/L (137-145)
[2024-01-31 19:45] LABS: Vitamin D 25 Hydroxy 24.1 ng/mL
== END 2024-01-31 14:25 | disposition home or self-care (01) ==
LOC: ANHGOSHLAB 14:25
PROVIDERS: PCP Family Medicine; Visit Provider Family Medicine
DX: E55.9 Vitamin D deficiency, unspecified (principal); I10 Essential (primary) hypertension
CPT/HCPCS: 36415; 80053; 80061; 82306; 84153; 84443; 85027; 85055; 85652; 86140; 86430; G0103

== ENCOUNTER 2025-01-23 15:43 | Emergency (ER) | payer MEDICARE, BC, SELFPAY ==
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
[2025-01-23 15:47] VITALS: BP 168/76; PULSE 73; RESP 18; TEMP 36.6; O2SAT 97
--- OUTSIDE RECORDS SUMMARY | 2025-01-23 16:58 | XMS_ITS | Clinical Summary ---
Author Organization [facility] [address] Address [address] [place] [address] Care Team Providers Care Sub Plant Manager Name Role Phone Pascual Elliott MD Primary Care Provider Allergies No known active allergies Medications nitroglycerin (NITROSTAT) 0.[address] 1 tablet (0.4 mg total) under the tongue every 5 (five) minutes as needed for chest pain 25 tablet 0 Active metFORMIN XR (GLUCOPHAGE XR) 500 mg 24 hr tablet Take 2 tablets (1,000 mg total) by mouth 2 (two) times a day 2 Active cholecalcifero l (VITAMIN D-3) 50,000 unit capsule TAKE 1 CAPSULE ORALLY WEEKLY 3 Active propranolol LA (INDERAL LA) 80 mg 24 hr capsule Take by mouth daily 3 Active cyanocobalamin (Vitamin B-12) 100 mcg tabletIndicati ons:Prevention of Vitamin B12 Deficiency Take 1 tablet (100 mcg total) by mouth daily Active glipiZIDE XL (GLUCOTROL XL) 5 mg 24 hr tablet Take 1 tablet (5 mg total) by mouth daily 3 Active lisinopriL (PRINIVIL,ZEST RIL) 20 mg tablet 20 MG ORALLY DAILY 3 Active Nurtec ODT tablet,disinte grating 3 Active empagliflozin (JARDIANCE) 10 mg tablet Take 1 tablet (10 mg total) by mouth daily Active Ozempic 1 mg/dose (4 mg/3 mL) pen injector injection 1 MG (0.75 ML) SUBCUTANEOUSLY WEEKLY FOR 90 DAYS 3 Active ticagrelor (BRILINTA) 90 mg tablet Take 1 tablet (90 mg total) by mouth 2 (two) times a day 60 tablet 11 3 Active atorvastatin (LIPITOR) 80 mg tablet TAKE 1 TABLET BY MOUTH EVERY DAY 90 tablet 3 4 Active aspirin 81 mg enteric coated tablet TAKE 1 TABLET BY MOUTH EVERY DAY 90 tablet 3 4 Active Active Problems Problem Noted Date Diagnosed Date Chest pain 05/20/2023 Coronary artery disease invo lving [place] coronary artery of [place] heart without angina pectoris 08/24/2017 History of coronary artery stent placement 08/24 Primary hyperparathyroidism 12/06/2008 Hypercalcemia 12/06/2008 Osteoarthritis of cervical spine 10/15/2008 Medical History Medical History Date Comments Hypertension Hypertension Hx Other Medical Right and left rotator cuff problems Hx Other Medical Cervical spine problem Hx Other Medical Gallstone Hx Other Medical Thyroid problem s Hx Other Medical Migraines Hx Other Medical Broken teeth Family History Medical History Relation Name Comments Coronary artery disease Brother 2 Cathryn nary Artery Disease; Liver cancer Father Liver Cancer; C ause of : Liver Cancer Other Mother DM complication s & Alzheimers; Cause of : DM complications & Alzheimers Relation Name Status Comments Brother 1 Alive Brother 2 Father (Age 57) Mother (Age 86) Social History Tobacco Use Types Packs/Day Years Used Date Smoking Tobacco: Former Cigarettes Q uit: 08/24/1982 Smokeless Tobacco: Never Tobacco Cessation:Counseling Given: No Alcohol Use Standard Drinks/Week Comments Yes 1 (1 standard drink = 0.6 oz pur e alcohol) Personal Safety Answer Date Recorded Have you ever been in or are you currently in a harmful physical or emotional relationship or is someone making you feel afraid or unsafe? Denies 06/01/2023 Sex and Gender Information Value Date Recorded Sex Assigned at Not on file Legal Sex Male 2:38 AM TAX APPRAISER Gender Identity Not on file Sexual Orientation Not on file Obstetrics History Last Filed Vital Signs Vital Sign Reading Time Taken Comments Blood Pressure 168/74 06/01/2023 5:11 PM TAX APPRAISER Pulse 68 06/01/2023 5:37 PM TAX APPRAISER Temperature 35.8 C (96.5 F) 04/30/2023 9:40 AM TAX APPRAISER Respiratory Rate 20 04/30/2023 9:40 AM TAX APPRAISER Oxygen Saturation 99% 06/01/2023 5:37 PM TAX APPRAISER Inhaled Oxygen Concentration - - Weight 110.4 kg (243 lb 6.4 oz) 06/01/2023 2:24 PM TAX APPRAISER Height 182.9 cm (6') 06/01/2023 2:24 PM TAX APPRAISER Body Mass Index 33.01 06/01/2023 2:24 PM TAX APPRAISER Plan of Treatment Health Maintenance Due Date Last Done Comments Depression Screening 1945 Hepatitis B Screening 1962 Abdominal Aortic Aneurysm (AAA) Screen 2009 Well Visit 65+ 2009 Pneumococcal vaccine 65+ (2 of 2 - PCV) 11/28/2014 0 11/28/2013 Zoster Vaccine (2 of 2) 03/16/2021 01/19/2021 DTaP/Tdap/Td Vaccine (2 - Td or Tdap) 11/29/2023 Fall Risk Assessment 06/01/2024 06/01/2023 Influenza Vaccine (#1) 2025 03/02/2019, 2017 Medical Devices Implanted Type Area Payroll Officer Device Identifier Shelf Expiration Date Model / Serial / Lot [employer] Tika Stent Drug Eluting S Megatron Mr [id number] - S0 - [id number] Implanted:Qty: 1 on 04/30/2023 by Dima Soni MD at [facility] Stent Left: Anterior Descending Cornary Artery [employer] Tika 11/29/2024 [id number] / 0 / [id number] [employer] Tika Stent Coronary Drug Eluting Rapid Exchange Synergy Megatron [id number] Telida Chromium [id number] - S0 - [id number] Implanted:Qty: 1 on 04/30/2023 by Dima Soni MD at [facility] Stent Left: Circumflex Coronary Artery [employer] Tika 10/06/2023 [id number] / 0 / [id number] Insurance [place] [id number] Advance Directives For more information, please contact: [phone] * Full Code (Latest Code Status on File) Date Activated Date Inactivated Comments 04/30/2023 12:40 PM 04/30/2023 9:19 PM Care Teams Sub Plant Manager Relationship Specialty Start Date End Date Pascual Elliott MD PCP - General Family Practice 09/27/18
--- OUTSIDE RECORDS SUMMARY | 2025-01-23 16:58 | XMS_ITS | Clinical Summary ---
Author Organization [facility] Address [address], [facility] [address] [place] [address] Phone Care Team Providers Care Newspaper Subscription Solicitor Name Role Phone Pascual Elliott MD Primary Care Provider Carmenza Adan APRN, SALESPERSON [employer] Unavailable + [phone] Jas Brooks MD Unavailable [phone] Allergies No known active allergies Medications aspirin EC 81 MG Tablet Delayed Response Take 325 mg by mouth daily. Active B Complex Vitamins (VITAMIN B COMPLEX PO) Take by mouth. Act alberta atorvastatin (LIPITOR) 40 MG Tablet Take 40 mg by mouth daily. Active lisinopril (PRINIVIL, ZESTRIL) 20 MG Tablet Take 20 mg by mouth daily. Active metFORMIN (GLUCOPHAGE) 500 MG Tablet Take 500 mg by mouth 2 times daily (with meals). Active nitroGLYCERIN (NITROSTAT) 0.4 MG SL Tablet 0.4 mg by Sublingual route every 5 minutes as needed. Active glipiZIDE (GLUCOTROL) 5 MG Tablet Take 2.5 mg by mouth daily after breakfast. Active Nutritional Supplements (Vitamin D Plus CoFactors) Tablet Take by mouth. Activ e Cholecalciferol 99943 UNIT Capsule Take by mouth once a week. Active propranolol (INDERAL LA) 160 MG CAPSULE SR 24 HR Take 80 mg by mouth 2 times daily. Active hydrOXYzine (ATARAX) 25 MG TabletIndication s:Chronic migraine with aura, intractable, with status migrainosus Take 2 Tablets by mouth nightly as needed for Anxiety or Sleep. 30 Tablet 02/29/202 4 Active Ubrogepant (Ubrelvy) 50 MG TabletIndication s:Chronic migraine with aura, intractable, with status migrainosus TAKE 1 TABLET BY MOUTH NEEDED FOR MIGRAINE. MAY REPEAT DOSE IN 2 HOURS IF NO RELIEF. 16 Tablet 2 4 Active divalproex (Depakote) 250 MG Tablet Delayed ResponseIndicati ons:Migraine Take 1 Tablet by mouth 2 times daily. Indications: Migraine Headache 60 Tablet 2 5 Active Active Problems No known active problems Encounters Date Type Department Care Team Description 11/20/2024 2:30 PM CDT Office Visit [facility] - Neurology [facility] [address] [place] [address] Carmenza Adan, BUNDLER, SALESPERSON [employer] Chronic migraine with aura, intractable, with status migrainosus (Primary Dx) Discharge Disposition: Discharged to home or Selfcare 11/20/2024 Travel from Last 3 Months Family History Medical History Relation Name Comments Lung Cancer Father Alzheimer's Disease Mother Diabetes Mother Relation Name Status Comments Father Mother Social History Tobacco Use Types Packs/Day Years Used Date Smoking Tobacco: Former Cigarettes Smokeless Tobacco: Never Tobacco Cessation:Counseling Given: Not Answered Alcohol Use Standard Drinks/Week Comments Not Currently 0 (1 standard drink = 0.6 oz pur e alcohol) Sex and Gender Information Value Date Recorded Sex Assigned at Not on file Legal Sex Male 11:13 AM CDT Gender Identity Not on file Sexual Orientation Not on file Last Filed Vital Signs Vital Sign Reading Time Taken Comments Blood Pressure 120/64 11/20/2024 2:21 PM CDT Pulse 67 11/20/2024 2:21 PM CDT Temperature 36.6 C (97.9 F) 11/20/2024 2:21 PM CDT Respiratory Rate 18 11/20/2024 2:21 PM CDT Oxygen Saturation 96% 11/20/2024 2:21 PM CDT Inhaled Oxygen Concentration - - Weight 112 kg (246 lb 14.4 oz) 11/20/2024 2:21 P M CDT Height 182.9 cm (6') 11/20/2024 2:21 PM CDT Body Mass Index 33.49 11/20/2024 2:21 PM CDT Plan of Treatment Upcoming Encounters Date Type Department Care Team (Late st Contact Info) Description 01/26/2025 2:15 PM CDT Procedure Visit [facility] - Neurology - [place] [address] [place] [address] Jas Brooks MD [address] [place] [address] 02/20/2025 11:00 AM CDT Office Visit [facility] - Neurology - [place] [address] [place] [address] Carmenza Adan APRN, [employer]ERSON [employer] [address] [place] [address] Health Maintenance Due Date Last Done Comments Hepatitis C Virus (HCV) Screening 1945 Respiratory Syncytial Virus (RSV) Immunization (Adult) (1 - 1-dose 75+ series) 2019 Influenza Immunization (#1) 01/15/202501/15, 02/09/2022, 02/17/2021, Additional history exists SARS-COV-2 Immunization ( season) 2025 04/19/2021, 08/16/2020, 07/19/2020 DTaP/Tdap/Td Immunization Discontinued 11/28/2013 TdaP Immunization Completed 11/28/2013 Zoster Immunization Completed 01/19/2021, 0 Pneumococcal Immunization (50+ years) Completed 08/24/2023, 07/31/2021, 01/27/2020, Additional history exists Pneumococcal Immunization Combined Discontinued 08/24/2023, 07/31/2021, 01/27/2020, Additional history exists Hepatitis B Immunization Aged Out No longer eligible based on patient's age to complete this topic Human Papillomavirus (HPV) Immunization Aged Out No longer eligible based on patient's age to complete this topic Meningococcal Immunization (ACWY) Aged Out No longer eligible based on patient's age to complete this topic Rotavirus Immunization Aged Out No lo nger eligible based on patient's age to complete this topic Insurance MEDICARE [facility] Care Teams Newspaper Subscription Solicitor Relationship Specialty Start Date End Date Pascual Elliott MD PCP - General Family Medicine 05/01/22 Carmenza Adan, BUNDLER, [employer]ERSON [employer] [address] [place] [address] Nurse Practitioner Advanced Practice Nurse 06/09/23 aJs Brooks MD [address] [place] [address] Consulting Physician Neurology 07/16/23
--- OUTSIDE RECORDS SUMMARY | 2025-01-23 16:58 | XMS_ITS | Clinical Summary ---
Author Organization [facility] Address [address] [place] [address] Care Team Providers Care Dry Press Operator Helper Name Role Phone Pascual Elliott MD Primary Care Provider Allergies No known active allergies Medications propranolol LA (INDERAL LA) 160 MG 24 hr capsule Take 1 capsule (160 mg total) by mouth daily. Active atorvastatin (LIPITOR) 40 MG tablet Take 1 tablet (40 mg total) by mouth nightly at bedtime. Active isosorbide dinitrate (ISORDIL) 30 MG tablet Take 1 tablet (30 mg total) by mouth 4 (four) times daily. Active glipiZIDE (GLUCOTROL) 5 MG tablet Take 1 tablet (5 mg total) by mouth every morning before breakfast. Active metFORMIN (GLUCOPHAGE) 1000 MG tablet Take 1 tablet (1,000 mg total) by mouth 2 (two) times daily with meals. Active vitamin B-12 (CYANOCOBALAMIN ) (CYANOCOBALAMIN ) 1000 mcg tablet Take 1 tablet (1,000 mcg total) by mouth daily. Active lisinopril (PRINIVIL) 20 MG tablet Take 1 tablet (20 mg total) by mouth daily. Active empagliflozin (JARDIANCE) 10 MG tablet Take 1 tablet (10 mg total) by mouth daily. Active clopidogrel (PLAVIX) 75 MG tablet Take 1 tablet (75 mg total) by mouth daily. Active ubrogepant (UBRELVY) 50 MG tablet Take 1 tablet (50 mg total) by mouth 2 (two) times daily as needed for Migraine. Max of 4 tablets (200 mg) in 24 hours Active Social History Tobacco Use Types Packs/Day Years Used Date Smoking Tobacco: Never Smokeless Tobacco: Never Tobacco Cessation:Counseling Given: Not Answered Alcohol Use Standard Drinks/Week Comments Yes 0 (1 standard drink = 0.6 oz pur e alcohol) socially Sex and Gender Information Value Date Recorded Sex Assigned at Not on file Legal Sex Male 11:56 AM CDT Gender Identity Not on file Sexual Orientation Not on file Last Filed Vital Signs Vital Sign Reading Time Taken Comments Blood Pressure 135/71 02/07/2024 10:25 AM CDT Pulse 56 02/07/2024 10:25 AM CDT Temperature 36.2 C (97.2 F) 02/07/2024 9:25 AM CDT Respiratory Rate 18 02/07/2024 9:25 AM CDT Oxygen Saturation 98% 02/07/2024 10:25 AM CDT Inhaled Oxygen Concentration - - Weight 113.4 kg (250 lb) 02/07/2024 9:28 AM CDT Height 182.9 cm (6') 02/07/2024 9:28 AM CDT Body Mass Index 33.91 02/07/2024 9:28 AM CDT Plan of Treatment Health Maintenance Due Date Last Done Comments Annual Medicare Wellness Visit 2009 RSV Immunization or 60+ Years (1 - 1-dose 75+ series) 2019 DTaP, Tdap and Td Vaccines (2 - Td or Tdap) 11/29/2023 11/28/2013 COVID-19 Vaccine ( season) 2025 04/19/2021, 08/16/2020, 07/19/2020 Zoster Vaccines Completed 01/19/2021, 04/15/2020 Pneumococcal Vaccine: 50+ Years Completed 08/24/2023, 07/31/2021, 01/27/2020, Additional history exists Meningococcal B Vaccine Aged Out No l onger eligible based on patient's age to complete this topic Meningococcal Vaccine Aged Out No denise pooja eligible based on patient's age to complete this topic RSV Immunizations Under 20 Months Aged Out No longer eligible based on patient's age to complete this topic Medical Devices Implanted Type Area Arc Welder Device Identifier Shelf Expiration Date Model / Serial / Lot Iol Fco Arnold Dcb00 - [id number] Implanted:Qty: 1 on 02/07/2024 by Shoaib Shah MD at [facility] Lens Left: Eye [employer] 03/28/2026 DCB00 / [id number] / Insurance MEDICARE Care Teams Dry Press Operator Helper Relationship Specialty Start Date End Date Pascual Elliott MD [address] [place] [address] PCP - General FAMILY PRACTICE 02/07/24
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
--- OUTSIDE RECORDS SUMMARY | 2025-01-23 17:56 | XMS_ITS | Clinical Summary ---
Author Organization [facility] Address [facility] [place] [address] Care Team Providers Care Munitions Handler Supervisor Name Role Phone Pascual Elliott MD Primary [...] this topic Medical Devices Implanted Type Area Head Stock Transfer Clerk Device Identifier Shelf Expiration Date Model / Serial / Lot Iol Fco Arnold Dcb00 - [id number] Implanted:Qty: 1 on 02/07/2024 by Shoaib Shah MD at [facility] Lens Left: Eye [employer] 03/28/2026 DCB00 / [id number] / Insurance MEDICARE Care Teams Munitions Handler Supervisor Relationship Specialty Start Date End Date Pascual Elliott MD [address] [place] [address] PCP - General FAMILY PRACTICE 02/07/24
--- OUTSIDE RECORDS SUMMARY | 2025-01-23 17:56 | XMS_ITS | Clinical Summary ---
Author Organization [facility] Address [address] [facility] [address] [place] [address] Phone Care Team Providers Care Healthcare Facility Administrator Name Role Phone Pascual Elliott MD Primary Care Provider Carmenza Adan APRN, [facility] Unavailable + [phone] Jas Brooks MD Unavailable +[phone] Allergies No known active allergies Medications aspirin [...] Tablet Take by mouth. Activ e Cholecalciferol 21607 UNIT Capsule Take by mouth once a [...] Description 11/20/2024 2:30 PM CDT Office Visit [facility] - Neurology [facility] [address] [place] [address] Carmenza Adan, FACILITY SERVICE MANAGER, [facility]STAIRS MAID Chronic migraine with aura, intractable, with status [...] Description 01/26/2025 2:15 PM CDT Procedure Visit [facility] - Neurology - [place] [address] [place] [address] Jas Brooks MD [address] [place] [address] 02/20/2025 11:00 AM CDT Office Visit [facility] - Neurology - [place] [address] [place] [address] Carmenza Adan APRN, [facility] [address] [place] [address] Health Maintenance Due Date Last Done Comments [...] age to complete this topic Insurance MEDICARE [facility] Care Teams Healthcare Facility Administrator Relationship Specialty Start Date End Date Pascual Elliott MD PCP - General Family Medicine 05/01/22 Carmenza Adan, FACILITY SERVICE MANAGER, [facility] [address] [place] [address] Nurse Practitioner Advanced Practice Nurse 06/09/23 Jas Brooks MD [address] [place] [address] Consulting Physician Neurology 07/16/23
--- OUTSIDE RECORDS SUMMARY | 2025-01-23 17:56 | XMS_ITS | Clinical Summary ---
Author Organization [facility] [address] Address [address] [place] [address] Care Team Providers Care Auto Body Estimator Name Role Phone Pascual Elliott MD Primary [...] pain 05/20/2023 Coronary artery disease invo lving [place] coronary artery of [place] heart without angina pectoris 08/24/2017 History of [...] on file Legal Sex Male 2:38 AM AIRLINE ATTENDANT Gender Identity Not on file Sexual Orientation Not on file Obstetrics History Last Filed Vital Signs Vital Sign Reading Time Taken Comments Blood Pressure 168/74 06/01/2023 5:11 PM AIRLINE ATTENDANT Pulse 68 06/01/2023 5:37 PM AIRLINE ATTENDANT Temperature 35.8 C (96.5 F) 04/30/2023 9:40 AM AIRLINE ATTENDANT Respiratory Rate 20 04/30/2023 9:40 AM AIRLINE ATTENDANT Oxygen Saturation 99% 06/01/2023 5:37 PM AIRLINE ATTENDANT Inhaled Oxygen Concentration - - Weight 110.4 kg (243 lb 6.4 oz) 06/01/2023 2:24 PM AIRLINE ATTENDANT Height 182.9 cm (6') 06/01/2023 2:24 PM AIRLINE ATTENDANT Body Mass Index 33.01 06/01/2023 2:24 PM AIRLINE ATTENDANT Plan of Treatment Health Maintenance Due Date [...] 03/02/2019, 2017 Medical Devices Implanted Type Area Crepe Sole Scourer Device Identifier Shelf Expiration Date Model / Serial / Lot [employer] Tika Stent Drug Eluting S Megatron Mr [id number] - S0 - [id number] Implanted:Qty: 1 on 04/30/2023 by Dima Soni MD at [facility] Stent Left: Anterior Descending Cornary Artery [employer] Tika 11/29/2024 [id number] / 0 / [id number] [employer] Tika Stent Coronary Drug Eluting Rapid Exchange Synergy Megatron [id number] [place] Chromium [id number] - S0 - [id number] Implanted:Qty: 1 on 04/30/2023 by Dima Soni MD at [facility] Stent Left: Circumflex Coronary Artery [employer] Tika 10/06/2023 [id number] / 0 / [id number] Insurance * Guarantor: James Bergeron Account Type Relation to Patient Date of Phone Billing Address Personal/Family Self 1945 [address] [facility] [employer] [place] Advance Directives For more information, please contact: [phone] * Full Code (Latest Code Status on File) Date Activated Date Inactivated Comments 04/30/2023 12:40 PM 04/30/2023 9:19 PM Care Teams Auto Body Estimator Relationship Specialty Start Date End Date Pascual Elliott MD PCP - General Family Practice 09/27/18
[2025-01-23 18:21] VITALS: BP 152/78; PULSE 74; RESP 16; TEMP 36.6; O2SAT 100
== END 2025-01-23 18:22 | disposition home or self-care (01) ==
PROVIDERS: Emergency Provider Physician Assistant; PCP Family Medicine
DX: S92.254A Nondisplaced fracture of navicular [scaphoid] of right foot, initial encounter for closed fracture (principal); I87.2 Venous insufficiency (chronic) (peripheral); E11.9 Type 2 diabetes mellitus without complications; E53.8 Deficiency of other specified B group vitamins; E78.5 Hyperlipidemia, unspecified; E21.3 Hyperparathyroidism, unspecified; G47.33 Obstructive sleep apnea (adult) (pediatric); F41.9 Anxiety disorder, unspecified; Z95.5 Presence of coronary angioplasty implant and graft; Z87.891 Personal history of nicotine dependence; Z79.82 Long term (current) use of aspirin; Z79.02 Long term (current) use of antithrombotics/antiplatelets; Z79.899 Other long term (current) drug therapy; Z79.85 Long-term (current) use of injectable non-insulin antidiabetic drugs; Z79.84 Long term (current) use of oral hypoglycemic drugs; Y93.16 Activity, rowing, canoeing, kayaking, rafting and tubing; V94.0XXA Hitting object or bottom of body of water due to fall from watercraft, initial encounter
CPT/HCPCS: 29515; 73600; 73630; 99284

== ENCOUNTER 2025-03-15 12:41 | Outpatient (CLI) | payer MEDICARE, BC, SELFPAY ==
--- OUTSIDE RECORDS SUMMARY | 2025-03-15 13:17 | XMS_ITS | Encounter Summary ---
Author Organization [facility] Address [address] [place] [address] Phone Care Team Providers Care Weight Caller Name Role Phone Pascual Elliott MD Primary Care Provider Carmenza Adan APRN, BULK GAS SPECIALIST Unavailable + [phone] Jas Brooks MD Unavailable [phone] Reason for Visit * Reason Comments Medication Refill Encounter Details Date Type Department Care Team (Late st Contact Info) Description 03/14/2025 Refill [facility] - [facility]rology - [place] [address] [place] [address] Jas Brooks MD [address] [place] [address] Medication Refill Social History Tobacco Use Types Packs/Day Years Used Date Smoking Tobacco: Former Cigarettes Smokeless Tobacco: Never Alcohol Use Standard Drinks/Week Comments Not Currently 0 (1 standard drink = 0.6 oz pur e alcohol) Sex and Gender Information Value Date Recorded Sex Assigned at Not on file Legal Sex Male 11:13 AM CDT Gender Identity Not on file Sexual Orientation Not on file documented as of this encounter Miscellaneous Notes * Telephone Encounter - Lona Santiago RN - 03/14/2025 1:11 PM CDT Medication failed the protocol, provider to review and approve the medication order if appropriate. Requested Prescriptions Pending Prescriptions Disp Refills Ubrelvy 50 MG Tablet [Pharmacy Med Name: UBRELVY 50 MG TABLET] 16 Tablet 2 Sig: TAKE 1 TABLET BY MOUTH NEEDED FOR MIGRAINE. MAY REPEAT DOSE IN 2 HOURS IF NO RELIEF. Not Delegated - Off Protocol Failed - 03/14/2025 1:11 PM Failed - This refill cannot be delegated Passed - Visit with relevant provider in past 12 months or upcoming 90 days Recent Visits Date Type Provider Dept 01/26/25 Procedure Visit Jas Brooks MD [facility] Neurology [facility] [place] 11/20/24 Office Visit Carmenza Adan APRN, BULK GAS SPECIALIST [facility] Neurology [facility] [place] 09/15/24 Procedure Visit Jas Brooks MD [facility] 06/23/24 Procedure Visit Jas Brooks MD [facility] [place] 03/31/24 Procedure Visit Jas Brooks MD [facility] Neurology [facility] Showing recent visits within past 365 days and meeting all other requirements Future Appointments Date Type Provider Dept 04/27/25 Appointment Jas Brooks MD [facility] Neurology [facility] Showing future appointments within next 90 days and meeting all other requirements documented in this encounter Plan of Treatment Upcoming Encounters Date Type Department Care Team (Late st Contact Info) Description 04/27/2025 11:30 AM PAYMENT ANALYST Procedure Visit [facility] [address] [place] [address] Jas Brooks MD [address] [place] [address] documented as of this encounter Visit Diagnoses Diagnosis Chronic migraine with aura, intractable, with status migrainosus documented in this encounter Care Teams Weight Caller Relationship Specialty Start Date End Date Pascual Elliott MD PCP - General Family Medicine 05/01/22 Carmenza Adan APRN, BULK GAS SPECIALIST [address] [place] [address] Nurse Practitioner Advanced Practice Nurse 06/09/23 Jas Brooks MD [address] [place] [address] Consulting Physician Neurology 07/16/23 documented as of this encounter
--- OUTSIDE RECORDS SUMMARY | 2025-03-15 13:17 | XMS_ITS | Clinical Summary ---
Author Organization [facility] Address [address], [address] [address] Phone Care Team Providers Care Chocolate Production Machine Operator Name Role Phone Pascual Elliott MD Primary Care Provider Carmenza Adan APRN, ORIENTAL MEDICINE PRACTITIONER Unavailable + [phone] Jas Brooks MD Unavailable [phone] Allergies No known active allergies Medications aspirin [...] Tablet Take by mouth. Activ e Cholecalciferol 71342 UNIT Capsule Take by mouth once a week. Active propranolol (INDERAL LA) 160 MG CAPSULE SR 24 HR Take 80 mg by mouth 2 times daily. Active hydrOXYzine (ATARAX) 25 MG TabletIndicatio ns:Chronic migraine with aura, intractable, with status migrainosus Take 2 Tablets by mouth nightly as needed for Anxiety or Sleep. 30 Tablet 07/15/19 24 Active divalproex (Depakote) 250 MG Tablet Delayed ResponseIndicat ions:Migraine Take 1 Tablet by mouth 2 times daily. Indications: Migraine Headache 60 Tablet 2 11/21/19 25 Active Ubrelvy 50 MG TabletIndicatio ns:Chronic migraine with aura, intractable, with status migrainosus TAKE 1 TABLET BY MOUTH NEEDED FOR MIGRAINE. MAY REPEAT DOSE IN 2 HOURS IF NO RELIEF. 16 Tablet 2 03/14/20 25 Active Ubrogepant (Ubrelvy) 50 MG TabletIndicatio ns:Chronic migraine with aura, intractable, with status migrainosus TAKE 1 TABLET BY MOUTH NEEDED FOR MIGRAINE. MAY REPEAT DOSE IN 2 HOURS IF NO RELIEF. 16 Tablet 2 05/15/20 24 025 Discontinued Active Problems No known active problems Encounters Date Type Department Care Team Description 03/14[facility] [address] [place] [address] Jas Brooks MD Medication Refill 01/26/2025 2:15 PM CDT Procedure Visit [facility] [address] [place] [address] Jas Brooks MD Chronic migraine with aura, intractable, with status migrainosus (Primary Dx) Discharge Disposition: Discharged to home or Selfcare 01/26/2025 Travel from Last 3 Months Immunizations Immunization Administration Dates Next Due Influenza Vaccine, MDCK,quadrivalent, pres free 02/09/2022 Influenza, High-dose, Quadrivalent 02/17/2021 Influenza, Quadrivalent, Adjuvanted 01/27/2020 Influenza, Seasonal, Injectable, Undefined 05/17 Influenza, Trivalent, Adjuvanted, PF 03/02/2019 Influenza, high-dose, trivalent, PF 01/31/2024 Pneumococcal Vaccine - 13 Valent 01/27/2020 Pneumococcal Vaccine Adult - 23 Valent 4 Pneumococcal conjugate PCV20 , polysaccharide [id number] conjugate, adjuvant, PF 08/24/2023,07/31/2021 TDAP Vaccine 11/28/2013 Zoster Vaccine Recombinant 01/19/2021,04/15/2020 Family History Medical History Relation Name Comments [...] st Contact Info) Description 04/27/2025 11:30 AM BELTING AND WEBBING INSPECTOR Procedure [facility] 3[facility] [address] [place] [address] Jas Brooks MD [address] [place] [address] Health Maintenance Due Date Last Done Comments Hepatitis C Virus (HCV) Screening 1945 Respiratory Syncytial Virus (RSV) Immunization (Adult) (1 - 1-dose 75+ series) 2019 Td Immunization Every 10 Years (Adults With 1 Tdap) 11/29/2023 11/28/2013 Influenza Immunization (#1) 01/15/202501/15, 02/09/2022, 02/17/2021, Additional history exists SARS-COV-2 Immunization ( season) 2025 04/19/2021, 08/16/2020, 07/19/2020 DTaP/Tdap/Td Immunization Discontinued 11/28/2013 TdaP Immunization Discontinued 11/28/2013 Zoster Immunization Completed 01/19/2021, Pneumococcal Immunization (50+ years) Completed 08/24/2023, 07/31/2021, [...] on patient's age to complete this topic Procedures Procedure Name Priority Date/Time Associated Diagnosis Comments CHEMODENERV MUSCLE(S) BILAT FACIAL/TRIGEMINAL/CE RV SPINE Routine 01/26/2025 2:15 PM CDT Chronic migraine with aura, intractable, with status migrainosus from Last 3 Months Results * CHEMODENERV MUSCLE(S) BILAT FACIAL/TRIGEMINAL/CERV SPINE (01/26/2025 2:15 PM CDT) Narrative Jas Brooks MD - 01/26/2025 2:15 PM CDT Jas Brooks MD 01/29/2025 6:05 AM presents for administration of botox for treatment of chronic migraines. Frequency of headaches compared to pre-Botox: significantly improved Function since receiving Botox: significantly improved Wasted amount of Botox: 45 Her skin was prepped with an alcohol wipe. Botox was diluted with 200 units into 4 ml saline and administered with a 30 gauge 1/2 inch needle to the following sites: To the corrugators 10 units was divided into two sites. To the procerus 5 units was admistered to 1 site To the frontalis 20 units was divided into 4 sites To the temporalis 40 units was divided into 8 sites To the Occipitalis 30 units was divided into 6 sites To the cervical paraspinals 20 units divided into 4 sites To the trapezius 30 units divided into 6 sites. This procedure has been fully reviewed with the patient and written informed consent has been obtained. Patient tolerated the procedure with no complications. Jas Brooks MD [place] - SURGERY Final Result from Last 3 Months Insurance MEDICARE [facility] Care Teams Chocolate Production Machine Operator Relationship Specialty Start Date End Date Pascual Elliott MD PCP - General Family Medicine 05/01/22 Carmenza Adan, MACHINE BANDER AND CELLOPHANER HELPER, ORIENTAL MEDICINE PRACTITIONER [address] [place] [address] Nurse Practitioner Advanced Practice Nurse 06/09/23 Jas Brooks MD [address] [place] [address] Consulting Physician Neurology 07/16/23
--- OUTSIDE RECORDS SUMMARY | 2025-03-15 13:17 | XMS_ITS | Clinical Summary ---
Author Organization [facility] [address] Address [address] [place] [address] Care Team Providers Care Web Content Manager Name Role Phone Pascual Elliott MD Primary Care Provider Allergies No known active allergies Medications nitroglycerin (NITROSTAT) 0.[address] 1 tablet (0.4 mg total) under the tongue every 5 (five) minutes as needed for chest pain 25 tablet 09/28/19 20 Active metFORMIN XR (GLUCOPHAGE XR) 500 mg 24 hr tablet Take 2 tablets (1,000 mg total) by mouth 2 (two) times a day 11/05/19 22 Active cholecalcifer ol (VITAMIN D-3) 50,000 unit capsule TAKE 1 CAPSULE ORALLY WEEKLY 01/15/20 23 Active propranolol LA (INDERAL LA) 80 mg 24 hr capsule Take by mouth daily 02/10/20 23 Active cyanocobalami n (Vitamin B-12) 100 mcg tabletIndicat ions:Preventi on of Vitamin B12 Deficiency Take 1 tablet (100 mcg total) by mouth daily Active glipiZIDE XL (GLUCOTROL XL) 5 mg 24 hr tablet Take 1 tablet (5 mg total) by mouth daily 01/14/20 23 Active lisinopriL (PRINIVIL,ZES TRIL) 20 mg tablet 20 MG ORALLY DAILY 01/02/20 23 Active Nurtec ODT tablet,disint egrating 03/31/20 23 Active empagliflozin (JARDIANCE) 10 mg tablet Take 1 tablet (10 mg total) by mouth daily Active Ozempic 1 mg/dose (4 mg/3 mL) pen injector injection 1 MG (0.75 ML) SUBCUTANEOUSLY WEEKLY FOR 90 DAYS 04/23/20 23 Active ticagrelor (BRILINTA) 90 mg tablet Take 1 tablet (90 mg total) by mouth 2 (two) times a day 60 tablet 11 04/30/20 23 Active atorvastatin (LIPITOR) 80 mg tablet TAKE 1 TABLET BY MOUTH EVERY DAY 90 tablet 3 07/12/19 24 Active aspirin 81 mg enteric coated tablet TAKE 1 TABLET BY MOUTH EVERY DAY 90 tablet 3 03/14/20 25 Active aspirin 81 mg enteric coated tablet TAKE 1 TABLET BY MOUTH EVERY DAY 90 tablet 3 04/20/20 24 2024 Discontinued Active Problems Problem Noted Date Diagnosed Date Chest pain 05/20/2023 Coronary artery disease invo lving [place] coronary artery of [place] heart without angina pectoris 08/24/2017 History of [...] on file Legal 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 Gender Identity Not on file Sexual Orientation Not on file Obstetrics History Last Filed Vital Signs Vital Sign Reading Time Taken Comments Blood Pressure 168/74 06/01/2023 5:11 PM DUB ROOM ENGINEER Pulse 68 06/01/2023 5:37 PM DUB ROOM ENGINEER Temperature 35.8 C (96.5 F) 04/30/2023 9:40 AM DUB ROOM ENGINEER Respiratory Rate 20 04/30/2023 9:40 AM DUB ROOM ENGINEER Oxygen Saturation 99% 06/01/2023 5:37 PM DUB ROOM ENGINEER Inhaled Oxygen Concentration - - Weight 110.4 kg (243 lb 6.4 oz) 06/01/2023 2:24 PM DUB ROOM ENGINEER Height 182.9 cm (6') 06/01/2023 2:24 PM DUB ROOM ENGINEER Body Mass Index 33.01 06/01/2023 2:24 PM DUB ROOM ENGINEER Plan of Treatment Health Maintenance Due Date [...] 03/02/2019, 2017 Medical Devices Implanted Type Area Electronic Equipment Set Up Operator Device Identifier Shelf Expiration Date Model / Serial / Lot [employer] Stent Drug Eluting S Megatron Us Mr [id number] - S0 - [id number] Implanted:Qty: 1 on 04/30/2023 by Dima Soni MD at [facility] Stent Left: Anterior Descending Cornary Artery [employer] Tika 11/29/2024 [id number] / 0 / [id number] [employer] Tika Stent Coronary Drug Eluting Rapid Exchange Synergy Megatron [id number] Ute Chromium [id number] - S0 - [id number] Implanted:Qty: 1 on 04/30/2023 by Dima Soni MD at [facility] Stent Left: Circumflex Coronary Artery [employer] Tika 10/06/2023 [id number] / 0 / [id number] [place] [employer] [place] [employer] [place] Advance Directives For more information, please contact: [phone] * Full Code (Latest Code Status on File) Date Activated Date Inactivated Comments 04/30/2023 12:40 PM 04/30/2023 9:19 PM Care Teams Web Content Manager Relationship Specialty Start Date End Date Pascual Elliott MD PCP - General Family Practice 09/27/18
--- OUTSIDE RECORDS SUMMARY | 2025-03-15 13:17 | XMS_ITS | Clinical Summary ---
Author Organization [facility] Address [facility] [place] [address] Care Team Providers Care Reinforcing Steel Placer Name Role Phone Pascual Elliott MD Primary [...] Vaccine ( season) 2025 04/19/2021, 08/16/2020, 07/19/2020 Influenza Adult (#1) 2025 01/31/2024, 02/09/2022, 03/02/2019, Additional history exists Zoster Vaccines Completed 01/19/2021, 04/15/2020 Pneumococcal Vaccine: 50+ Years Completed 08/24/2023, 07/31/2021, 01/27/2020, Additional history exists Hepatitis A Vaccines Aged Out No long er eligible based on patient's age to complete this topic Meningococcal B Vaccine Aged Out No l onger eligible based on patient's age to complete this topic Meningococcal Vaccine Aged Out No denise pooja eligible based on patient's age to complete this topic RSV Immunizations Under 20 Months Aged Out No longer eligible based on patient's age to complete this topic Medical Devices Implanted Type Area Dredge Pipe Operator Device Identifier Shelf Expiration Date Model / Serial / Lot Iol Fco Arnold [id number] - [id number] Implanted:Qty: 1 on 02/07/2024 by Shoaib Shah MD at [facility] Lens Left: Eye [employer] 03/28/2026 [id number] / [id number] / [place] [address] [place] [address] MEDICARE Care Teams Reinforcing Steel Placer Relationship Specialty Start Date End Date Pascual Elliott MD [address] [facility] [address] [place] [address] PCP - General FAMILY PRACTICE 02/07/24
[2025-03-15 19:03] LABS: Hematocrit 43.4 % (42.0-52.0); Hemoglobin 14.1 g/dL (14.0-18.0); Immature Granulocyte Percent A 0.3 % (0-0.5); Lymphocytes Absolute Auto 1.63 K/mm3 (0.9-3.2); Mean Corpuscular HGB Conc 32.5 g/dl (32-36); Mean Corpuscular Hemoglobin 29.1 pg (26-34); Mean Corpuscular Volume 89.7 fl (80-100); Nucleated Red Blood Cells Absolute Auto 0.000 K/mm3 (0.0-0.012); Nucleated Red Blood Cells Perc 0.0 % (0.0-0.2); Platelet Count Result 286 k/mm3 (150-375); Red Blood Count 4.84 M/mm3 (4.6-6.20); White Blood Count 6.8 K/mm3 (4.5-10.0)
[2025-03-15 19:12] LABS: Alanine Aminotransferase 19 U/L (6-50); Albumin Level 4.3 g/dL (3.5-5.1); Alkaline Phosphatase 61 U/L (38-126); Anion Gap 9 mmol/L (4-12); Aspartate Amino Transferase 46 U/L (17-59); Bilirubin,Total 0.6 mg/dL (0.2-1.3); Blood Urea Nitrogen 19 mg/dL (9-20); Calcium 9.5 mg/dL (8.4-10.2); Carbon Dioxide 31 mmol/L (22-30); Chloride 100 mmol/L (98-107); Cholesterol 174 mg/dL (0-200); Estimated Glomerular Filt Rate > 60; Glucose 131 mg/dL (65-110); HDL Direct 55 mg/dL; Potassium 4.8 mmol/L (3.4-5.0); Sodium 140 mmol/L (137-145); Total Protein 7.5 g/dL (6.3-8.2); Triglycerides 161 mg/dL (<150)
[2025-03-15 19:19] LABS: Parathyroid Intact 25.4 pg/mL (14.5-75.2)
[2025-03-15 19:35] LABS: Free T4 Free Thyroxine 1.04 ng/dL (0.78-2.19)
[2025-03-15 19:37] LABS: MALB Creatinine Ratio 17.8 mg/g (0-30)
[2025-03-15 20:07] LABS: Prostate Specific Antigen 3.6 ng/mL (< OR = 4.0)
[2025-03-15 20:33] LABS: Vitamin B12 976.0 pg/mL (239-931)
[2025-03-15 20:49] LABS: Thyroid Stimulating Hormone 2.520 uIU/mL (0.465-4.680)
[2025-03-19 13:08] LABS: Calcium, Ionized 5.0 mg/dL (4.5-5.6)
== END 2025-03-15 12:42 | disposition home or self-care (01) ==
PROVIDERS: PCP Family Medicine; Visit Provider Family Medicine
DX: Z12.5 Encounter for screening for malignant neoplasm of prostate (principal); E78.5 Hyperlipidemia, unspecified; I10 Essential (primary) hypertension; E55.9 Vitamin D deficiency, unspecified; E11.9 Type 2 diabetes mellitus without complications; E53.8 Deficiency of other specified B group vitamins; E21.3 Hyperparathyroidism, unspecified
CPT/HCPCS: 36415; 80053; 80061; 82043; 82306; 82330; 82607; 83970; 84153; 84439; 84443; 85025; G0103